=== PATIENT | female | born 1960 | race Caucasian/White ===

== ENCOUNTER 2016-12-08 21:21 | Emergency (ER) | payer BC ==
[2016-12-08 21:37] VITALS: BP 144/80
--- NOTE | 2016-12-08 21:39 | UC ---
Skin Complaint HPI - HPI Summary HPI Summary: 56 yo F states she got a splinter in her foot 3 days ago and can't remove it. Pt is not sure if it is wood or not. - History of Current Complaint Chief Complaint: UCSkin Time Seen by Provider: 12/08/16 21:29 Stated Complaint: SLIVER IN RIGHT FOOT Hx Obtained From: Patient Hx Last Menstrual Period: age 49 Onset/Duration: Gradual Onset, Lasting Days, Still Present Timing: Constant Onset Severity: Moderate Current Severity: Moderate Pain Intensity: 0 Pain Scale Used: 0-10 Numeric Location: Foot (Right) - plantar surface Character: Pain, Painful Aggravating: Touch Alleviating: Nothing Associated Signs & Symptoms: Negative: Rash, Drainage, Bruising, Red Streaks Related History: Foreign Body - sliver - Allergy/Home Medications Allergies/Adverse Reactions: Allergies Allergy/AdvReac Type Severity Reaction Status Date / Time No Known Allergies Allergy Verified 12/08/16 21:37 Home Medications: Home Medications Aspirin [Aspirin 81 MG TAB] 81 mg PO DAILY 12/08/16 [History Confirmed 12/08/16] Calcium 500 mg PO DAILY 12/08/16 [History Confirmed 12/08/16] Cholecalciferol [Vitamin D] 2,000 unit PO DAILY 12/08/16 [History Confirmed 11/19] Citalopram TAB* [Celexa TAB*] 40 mg PO DAILY 12/08/16 [History Confirmed ] Lisinopril TAB* [Prinivil TAB 10 MG*] 10 mg PO DAILY 12/08/16 [History Confirmed 12/08/16] Multivitamins/Minerals TAB* [Thera M Plus TAB*] 1 tab PO DAILY 12/08/16 [ History Confirmed 12/08/16] Ruso-3 Fatty Acids [Fish Oil] 500 mg PO DAILY 12/08/16 [History Confirmed 12/08] Simvastatin [Zocor 40 MG (NF)] 40 mg PO QPM 12/08/16 [History Confirmed 12/08/16 ] buPROPion TAB* [Wellbutrin TAB*] 75 mg PO DAILY 12/08/16 [History Confirmed 11/19] metFORMIN* [Glucophage 1000 MG TAB *] 1,000 mg PO QPM 12/08/16 [History Confirmed 12/08/16] Review of Systems Constitutional: Negative Skin: Other - sliver in right bottom of foot Eyes: Negative ENT: Negative Respiratory: Negative Cardiovascular: Negative Gastrointestinal: Negative Genitourinary: Negative Motor: Negative Neurovascular: Negative Musculoskeletal: Negative Neurological: Negative Psychological: Negative All Other Systems Reviewed And Are Negative: Yes PMH/Surg Hx/FS Hx/Imm Hx Previously Healthy: No Endocrine History: Diabetes - II Cardiovascular History: Hypertension Psychological History: Depression - Surgical History Surgical History: Yes Surgery Procedure, Year, and Place: x 3, cholecystectomy, lump from right axilla - Family History Known Family History: Positive: Hypertension - Social History Alcohol Use: Occasionally Substance Use Type: None Smoking Status (MU): Former Smoker - Immunization History Most Recent Tetanus Shot: about 2014 Physical Exam Triage Information Reviewed: Yes Appearance: Well-Appearing, No Pain Distress, Well-Nourished Vital Signs: Initial Vital Signs Temp 97.5 F 12/08/16 21:28 Pulse 54 12/08/16 21:28 Resp 18 12/08/16 21:28 BP 144/80 12/08/16 21:28 Vital Signs Reviewed: Yes Eyes: Positive: Conjunctiva Clear ENT: Positive: Normal ENT inspection, Hearing grossly normal. Negative: Muffled /hoarse voice Neck: Positive: Supple Respiratory: Positive: No respiratory distress Cardiovascular: Positive: RRR, No Murmur, Pulses Normal, Brisk Capillary Refill Musculoskeletal: Positive: Strength Intact, ROM Intact Neurological: Positive: Alert, Muscle Tone Normal Psychological Exam: Normal Skin: Positive: Other - splinter noted on plantar surface right foot at 3rd MTP Course/Dx - Course Course Of Treatment: time out procedure:Sterile technique, betadine cleanse, 2% local lido, #11 blade used to make superficial incision over the splinter. 3mm splinter removed with splinter forceps without difficulty. Wound irrigated with 50cc sterile normal saline after procedure. cephalexin 500mg given as prophylaxis against infection since pt is a diabetic - Differential Diagnoses - Skin Complaint Differential Diagnoses: Cellulitis, MRSA, Other - foreign body - Diagnoses Provider Diagnoses: splinter removal right foot. DM II. HTN in poor control Discharge - Discharge Plan Condition: Stable Disposition: HOME Prescriptions: Cephalexin CAP* [Keflex 500 CAP*] 500 mg PO QID #40 cap Patient Education Materials: Soft Tissue Foreign Body (ED) Referrals: Justice WHITTINGTON,Keith Alvarenga [Doctor of Podiatric Medicine] - As Soon As Possible Yanira Bell MD [Primary Care Provider] - 2 Days (regarding today's visit and your blood pressure which is elevated ) Additional Instructions: Soak your foot at least twice a day in Epsom salts for the next 2 days. Follow up with a senior cytotechnologist since you are a diabetic and you have a wound on the bottom of your foot. Take the cephalexin as directed. Return to urgent care if you have any new or worsening symptoms.
[2016-12-08] MEDS ORDERED: Lidocaine 2% PF * 5 ML VIAL INJ ONE (21:46)
[2016-12-08] MEDS ORDERED: Cephalexin CAP* 500 MG PO ONE (22:11)
== END 2016-12-08 22:26 | disposition home or self-care (01) ==
LOC: UCCORT 21:21
DX: S90.851A Superficial foreign body, right foot, initial encounter (principal); W45.8XXA Other foreign body or object entering through skin, initial encounter; Y93.9 Activity, unspecified; Y92.9 Unspecified place or not applicable; Y99.9 Unspecified external cause status; E11.9 Type 2 diabetes mellitus without complications; Z79.84 Long term (current) use of oral hypoglycemic drugs; I10 Essential (primary) hypertension; F32.9 Major depressive disorder, single episode, unspecified; Z90.49 Acquired absence of other specified parts of digestive tract; Z87.891 Personal history of nicotine dependence
CPT/HCPCS: 28190; 99202; A9270-GY; G0463